=== PATIENT | female | born 1990 | race Caucasian/White ===

== ENCOUNTER 2019-09-15 09:10 | Inpatient (IN) | payer BC ==
[~2019-09-15] VITALS: Ht 167.6 cm; Wt 95.2 kg
[~2019-09-15 09:10] MED LIST: Colace100 MG PO; HYDACE5 PO; HYDR1TAB94 PO; IBUP200 PO; IBUP800 PO; METERG.2 PO; MULVITMINE PO; PROM25 PO; SIME80CH PO
--- NOTE | 2019-09-15 10:39 | NUR ---
HERE LOBOR CHECK. UC'S BEGAN ABOUT 2400 AND HAVE INCREASED IN FREQUENCY. NOW 5 MINUTES APART. CERVICAL CHANGE. ADMITTED IN ACTIVE LABOR
[2019-09-15 10:44] LABS: BASOPHILS ABSOLUTE AUTO 0.04 K/mm3 (0.00-0.23); BASOPHILS PERCENT AUTO 0 % (0-2); EOSINOPHILS ABSOLUTE AUTO 0.16 K/mm3 (0.00-0.68); EOSINOPHILS PERCENT AUTO 2 % (0-6); Hematocrit 37.4 % (33.0-51.0); Hemoglobin 12.4 g/dL (11.5-16.0); IMMATURE GRAN ABSOLUTE AUTO 0.08 K/mm3 (0.00-0.10); IMMATURE GRAN PERCENT AUTO 1 % (0-1); LYMPHOCYTES ABSOLUTE AUTO 1.65 K/mm3 (0.84-5.20); LYMPHOCYTES PERCENT AUTO 15 % (21-46); MONOCYTES PERCENT AUTO 9 % (4-13); Mean Corpuscular HGB 30.2 pg (26.0-34.0); Mean Corpuscular HGB Conc 33.2 g/dL (31.5-36.5); Mean Corpuscular Volume 91 fL (80-100); Mean Platelet Volume 11.4 fL (9.1-12.4); NEUTROPHILS ABSOLUTE AUTO 7.82 K/mm3 (1.96-9.15); NEUTROPHILS PERCENT AUTO 73 % (41-73); Platelet Count 206 K/mm3 (150-400); RDW Coefficient Variation 13.2 % (11.7-14.2); RDW Standard Deviation 43.6 fL (35.1-46.3); White Blood Cell Count 10.75 K/mm3 (4.00-11.30)
[2019-09-15] MEDS ORDERED: PRENATAL TABLE1 EAC2 PO (10:58)
[2019-09-15] MEDS ORDERED: Aspir 8181 MG PO (10:59)
--- NOTE | 2019-09-15 11:19 | NUR ---
REPORTS SORM AT APPROX 2400 CLEAR FLUID. NITRAZINE POSITIVE ADMIT
[2019-09-15 23:35] LABS: PCO2 Cord - Arterial 64.1 mmHg (40-50); PO2 Cord - Arterial < 13 mmHg (16-20)
[2019-09-15 23:37] LABS: PCO2 Cord - Venous 42.3 mmHg (40-50); PO2 Cord - Venous 18.5 mmHg (28-32); pH Umbilical Cord - Venous 7.33 (7.26-7.35)
--- NOTE | 2019-09-15 23:42 | NUR ---
09/15/19 2342 Mamta Cuello PT ARRIVED TO OR WITH EPIDURAL IN PLACE [facility] CATH. BABY BOY WAS BORN AT 2324. SEE N/N REGARDING ASSESSMENT. CORD SEGMENT GIVEN TO RT GARY PABON. CORD BLOOD GIVEN TO ALBERTO COSTELLO RN.
[2019-09-16 06:00] LABS: BASOPHILS ABSOLUTE AUTO 0.04 K/mm3 (0.00-0.23); BASOPHILS PERCENT AUTO 0 % (0-2); EOSINOPHILS ABSOLUTE AUTO 0.03 K/mm3 (0.00-0.68); EOSINOPHILS PERCENT AUTO 0 % (0-6); Hematocrit 31.4 % (33.0-51.0); Hemoglobin 10.6 g/dL (11.5-16.0); IMMATURE GRAN ABSOLUTE AUTO 0.08 K/mm3 (0.00-0.10); IMMATURE GRAN PERCENT AUTO 1 % (0-1); LYMPHOCYTES PERCENT AUTO 13 % (21-46); MONOCYTES ABSOLUTE AUTO 0.95 K/mm3 (0.16-1.47); MONOCYTES PERCENT AUTO 7 % (4-13); Mean Corpuscular HGB 30.4 pg (26.0-34.0); Mean Corpuscular HGB Conc 33.8 g/dL (31.5-36.5); Mean Corpuscular Volume 90 fL (80-100); Mean Platelet Volume 11.5 fL (9.1-12.4); NEUTROPHILS ABSOLUTE AUTO 11.55 K/mm3 (1.96-9.15); NEUTROPHILS PERCENT AUTO 80 % (41-73); Platelet Count 194 K/mm3 (150-400); RDW Coefficient Variation 13.2 % (11.7-14.2); RDW Standard Deviation 42.9 fL (35.1-46.3); Red Blood Cell Count 3.49 M/mm3 (3.80-5.20); White Blood Cell Count 14.45 K/mm3 (4.00-11.30)
--- NOTE | 2019-09-16 06:09 | NUR ---
PT DECLINES BEDSIDE SHIFT REPORT THIS AM, SHE HAS NOT SLEPT AND WOULD LIKE TO TRY TO SLEEP UNTIL BREAKFAST, WILL CALL IF SHE NEEDS ANYTHING.
--- NOTE | 2019-09-16 10:28 | NUR ---
CONSULT. BABY IS LESS THAN 24 HOURS AND CONTINUES VERY SLEEPY, CURRENTLY ASLEEP IN DADS ARMS. INSTRUCT/DEMO SELF EBM TO ENTICE A LATCH, USE OF SHIELD AND WEANING FROM USE AFTER ENGORGEMEENT. INSTRUCT IN CHANGES TO EXPECT DURING THE FIRST WEEK WITH BABY AND WITH FEEDINGS AND REFERRED TO BF [facility] AND BF [facility]OOK[facility] FOR PHOTOS AND INFORMATION. QUESTIONS ANSWERED. SKIN TO SKIN TIME ENCOURAGED.
--- NOTE | 2019-09-16 17:00 | NUR ---
Assumed care from Katie Flores RN.
--- NOTE | 2019-09-16 17:15 | NUR ---
Pt reports good pain relief from earlier percocet. Denies other needs at this time.
[2019-09-17] MEDS ORDERED: IBUP800 PO (11:21)
[2019-09-17] MEDS ORDERED: Percocet 5-3251 EACH PO (11:22)
--- NOTE | 2019-09-22 13:07 | NUR ---
LATE ENTRY PER RN DOT QUESADA STOCKINGS WERE PLACED PRIOR TO C/S ERROR IN CHARTING
== END 2019-09-17 14:20 | disposition home or self-care (01) | DRG 788 ==
LOC: OBS 09:10 → BC 09:10 → OBS 09:35 → BC 09:36
PROVIDERS: Obstetrics & Gynecology; ADMIT Nurse Practitioner Obstetrics & Gynecology
PROC: 10H07YZ Insertion of Other Device into Products of Conception, Via Natural or Artificial Opening (ICD-10-PCS; 2019-09-15)
PROC: 3E0R3BZ Introduction of Anesthetic Agent into Spinal Canal, Percutaneous Approach (ICD-10-PCS; 2019-09-15)
PROC: 10D00Z1 Extraction of Products of Conception, Low, Open Approach (ICD-10-PCS; principal; 2019-09-15 23:30)
DX: O32.1XX0 Maternal care for breech presentation, not applicable or unspecified (principal); Z3A.39 39 weeks gestation of pregnancy; Z37.0 Single live birth; Z88.2 Allergy status to sulfonamides; O76 Abnormality in fetal heart rate and rhythm complicating labor and delivery
CPT/HCPCS: 36415; 51702; 59025; 59070; 82803; 85025; 86850; 86900; 86901; J0290; J0690; J1885; J2001; J2370; J2405; J2590; J2765; J3010; J7030; J7120

== ENCOUNTER 2021-12-14 03:23 | Inpatient (IN) | payer BC ==
[~2021-12-14] VITALS: Ht 167.6 cm; Wt 99.1 kg
[~2021-12-14 03:23] MED LIST changes: +Aspir 8181 MG PO; +PRENATAL TABLE1 EAC2 PO; +Percocet 5-3251 EACH PO
[2021-12-14] MEDS ORDERED: CRANBERRY500 M1 PO (04:15)
[2021-12-14] MEDS ORDERED: PRENATAL TABLE1 EAC2 PO (04:17)
[2021-12-14] MEDS ORDERED: FERRO-TIME325 M1 PO (04:17)
[2021-12-14 04:18] LABS: BASOPHILS ABSOLUTE AUTO 0.07 K/mm3 (0.00-0.23); BASOPHILS PERCENT AUTO 1 % (0-2); EOSINOPHILS ABSOLUTE AUTO 0.25 K/mm3 (0.00-0.68); EOSINOPHILS PERCENT AUTO 2 % (0-6); Hematocrit 37.5 % (33.0-51.0); Hemoglobin 12.8 g/dL (11.5-16.0); IMMATURE GRAN ABSOLUTE AUTO 0.08 K/mm3 (0.00-0.10); IMMATURE GRAN PERCENT AUTO 1 % (0-1); LYMPHOCYTES ABSOLUTE AUTO 1.98 K/mm3 (0.84-5.20); LYMPHOCYTES PERCENT AUTO 18 % (21-46); MONOCYTES ABSOLUTE AUTO 0.76 K/mm3 (0.16-1.47); MONOCYTES PERCENT AUTO 7 % (4-13); Mean Corpuscular HGB 30.5 pg (26.0-34.0); Mean Corpuscular HGB Conc 34.1 g/dL (31.5-36.5); Mean Corpuscular Volume 89 fL (80-100); Mean Platelet Volume 11.7 fL (9.1-12.4); NEUTROPHILS ABSOLUTE AUTO 7.62 K/mm3 (1.96-9.15); NEUTROPHILS PERCENT AUTO 71 % (41-73); Platelet Count 173 K/mm3 (150-400); RDW Coefficient Variation 13.6 % (11.7-14.2); RDW Standard Deviation 44.3 fL (35.1-46.3); White Blood Cell Count 10.76 K/mm3 (4.00-11.30)
[2021-12-15 06:08] LABS: Hematocrit 32.6 % (33.0-51.0); Hemoglobin 10.9 g/dL (11.5-16.0); Mean Corpuscular HGB 30.8 pg (26.0-34.0); Mean Corpuscular HGB Conc 33.4 g/dL (31.5-36.5); Mean Corpuscular Volume 92 fL (80-100); Platelet Count 152 K/mm3 (150-400); RDW Coefficient Variation 13.6 % (11.7-14.2); RDW Standard Deviation 46.2 fL (35.1-46.3); Red Blood Cell Count 3.54 M/mm3 (3.80-5.20); White Blood Cell Count 12.12 K/mm3 (4.00-11.30)
[2021-12-15] MEDS ORDERED: IBUP800 PO (14:31)
[2021-12-15] MEDS ORDERED: Percocet 5-3251 EACH PO (14:32)
== END 2021-12-15 17:35 | disposition home or self-care (01) | DRG 807 ==
LOC: OBS 03:23 → BC 03:26 → OBS 03:45 → BC 03:48
PROVIDERS: Advanced Practice Midwife; ADMIT Nurse Practitioner Obstetrics & Gynecology
PROC: 10E0XZZ Delivery of Products of Conception, External Approach (ICD-10-PCS; principal; 2021-12-14)
PROC: 00HU33Z Insertion of Infusion Device into Spinal Canal, Percutaneous Approach (ICD-10-PCS; 2021-12-14)
PROC: 3E0R3BZ Introduction of Anesthetic Agent into Spinal Canal, Percutaneous Approach (ICD-10-PCS; 2021-12-14)
PROC: 3E0R3NZ Introduction of Analgesics, Hypnotics, Sedatives into Spinal Canal, Percutaneous Approach (ICD-10-PCS; 2021-12-14)
PROC: 0HQ9XZZ Repair Perineum Skin, External Approach (ICD-10-PCS; 2021-12-14)
DX: O42.02 Full-term premature rupture of membranes, onset of labor within 24 hours of rupture (principal); Z37.0 Single live birth; O32.1XX0 Maternal care for breech presentation, not applicable or unspecified; Z3A.39 39 weeks gestation of pregnancy; Z67.40 Type O blood, Rh positive; O76 Abnormality in fetal heart rate and rhythm complicating labor and delivery; O70.0 First degree perineal laceration during delivery; Z88.2 Allergy status to sulfonamides; Z88.8 Allergy status to other drugs, medicaments and biological substances; Z28.21 Immunization not carried out because of patient refusal
CPT/HCPCS: 36415; 51702; 85025; 85027; 86850; 86900; 86901; A9270; J1885; J2001; J2210; J3010; J7120

== ENCOUNTER → 2023-11-09 | Outpatient (CLI) | payer BC ==
[~2023-11-09] MED LIST changes: +CRANBERRY500 M1 PO; +FERRO-TIME325 M1 PO
== END ==
LOC: LAB SHORT 12:34 → LAB 12:34
DX: N39.0 Urinary tract infection, site not specified (principal)
CPT/HCPCS: 87077; 87086; 87186